=== PATIENT | female | born 1965 | race Caucasian/White ===

== ENCOUNTER 2021-08-05 08:33 | Emergency (ER) | payer OTHER ==
[2021-08-05] MEDS ORDERED: DEXA6TAB6 PO (09:36)
[2021-08-05] MEDS ORDERED: AZIT-31 PO (09:36)
[2021-08-05 09:51] VITALS: BP 136/92
== END 2021-08-05 09:57 | disposition home or self-care (01) ==
LOC: ER 08:34
DX: J20.9 Acute bronchitis, unspecified (principal); L30.1 Dyshidrosis [pompholyx]; Z79.2 Long term (current) use of antibiotics; Z79.899 Other long term (current) drug therapy
CPT/HCPCS: 99283